=== PATIENT | female | born 1975 | race Caucasian/White ===

== ENCOUNTER 2016-07-27 11:16 | Emergency (ER) | payer SELFPAY ==
[~2016-07-27] VITALS: Ht 162.6 cm; Wt 56.5 kg
[~2016-07-27 11:16] MED LIST: ADDE5TAB PO; BACT800T5 PO
[2016-07-27 11:17] VITALS: BP 167/98; PULSE 97; RESP 17; TEMP 98.2; O2SAT 98
[2016-07-27] MEDS ORDERED: BUPR4MIS SL (11:32)
--- NOTE | 2016-07-27 11:38 | PD ---
HPI Chief Complaint: Psychiatric Symptoms Time Seen by Provider: 11:38 Travel History International Travel<30 days: No Contact w/Intl Traveler<30days: No Traveled to known affect area: No History of Present Illness HPI 50-year-old female who is a polysubstance abuser came in because she is having anxiety and body aches. I asked her about detox since the triage note says detox and she said she was not sure why they put detox. She does have these symptoms for past 2 months. She did IV drug abuse prior to coming into the emergency room this morning. She was falling asleep as I was talking to her but then woke up and answered questions appropriately. She was scratching her face constantly while she was talking to me. Vital signs are within normal limits. I asked her if she spoke with her primary care about her symptoms since that been going on for 2 months and she said that she did and he gave her prescription for Cymbalta. She has not filled this prescriptions yet. PFSH Past Medical History Narrative Medical List of her past medical, social, surgical and family history is reviewed from the nursing note. Hx Anticoagulant Therapy: No Anxiety: Yes Depression: Yes Cardiovascular Problems: No Chemotherapy: No Cerebrovascular Accident: No Diabetes: No Diminished Hearing: No Reproductive: Yes (ENDOMETRIOSIS) Respiratory: No Immunizations Current: No Tetanus Vaccination: > 5 Years Influenza Vaccination: No ?: Not LMP: 07/27/16 : 3 Para: 0 Miscarriage: 1 : 3 Past Surgical History Surgical History: No Previous Surgery Hysterectomy: No Social History Alcohol Use: Yes (PT STATES OCCASIONALLY) Tobacco Use: Yes (1/2 PPD) Substance Use: Yes (DILAUDID/METH IVDA) Allergies-Medications (Allergen,Severity, Reaction): Coded Allergies: *MDRO Multi-Drug Resistant Organism (Verified Adverse Reaction, Unknown, ) ESBL+E.Coli (urine)-11/14/15 Comments List of her allergies reviewed from the nursing note. Reported Meds & Prescriptions Reported Meds & Active Scripts Active Reported Suboxone Sublingual Film (Buprenorphine-Naloxone Sublingual Film) 4-1 Mg Film 1 Film SL Unique ID number required: Narrative Medication List of her home medications reviewed from the nursing note. Review of Systems Except as stated in HPI: all other systems reviewed are Neg Physical Exam Narrative GENERAL: Drowsy, answering questions appropriately, no obvious distress SKIN: Warm and dry. HEAD: Atraumatic. Normocephalic. EYES: Pupils equal and round. No scleral icterus. No injection or drainage. ENT: No nasal bleeding or discharge. Mucous membranes pink and moist. NECK: Trachea midline. No JVD. CARDIOVASCULAR: Regular rate and rhythm. No murmur appreciated. RESPIRATORY: No accessory muscle use. Clear to auscultation. Breath sounds equal bilaterally. GASTROINTESTINAL: Abdomen soft, non-tender, nondistended. Hepatic and splenic margins not palpable. MUSCULOSKELETAL: No obvious deformities. No clubbing. No cyanosis. No edema. NEUROLOGICAL: Drowsy but wakes up upon calling her name and answers questions appropriately. No obvious cranial nerve deficits. Motor grossly within normal limits. Normal speech. PSYCHIATRIC: Appropriate mood and affect; insight and judgment normal. Data Data Last Documented VS Vital Signs Date Time Temp Pulse Resp B/P Pulse Ox O2 Delivery O2 Flow Rate FiO2 07/27/16 11:17 98.2 97 17 167/98 98 MDM Medical Decision Making Medical Screen Exam Complete: Yes Emergency Medical Condition: Yes Medical Record Reviewed: Yes Differential Diagnosis Polysubstance abuse, substance abuse related anxiety Narrative Course 12:07 PM I recommended the patient to fill the prescription for Cymbalta and start taking it like her primary care prescribed if it does not seem to contain her symptoms then she needs to go back to her primary care and discuss it with him. I will discharge her at this point. Procedures EKG Prior to Arrival: No Diagnosis Primary Impression: Substance abuse Additional Impression: Anxiety Referrals: Primary Care Physician Additional Instructions: Please take the medication that was prescribed to you by your primary care. If symptoms are not getting better after taking it for a few days then please follow-up with your primary care. Med/Other Pt SpecificInfo: No Change to Meds Disposition: 01 DISCHARGE HOME Condition: Stable Leticia Cook MD Jul 27, 2016 11:38
== END 2016-07-27 12:25 | disposition home or self-care (01) ==
LOC: NEPA 11:16
DX: F19.10 Other psychoactive substance abuse, uncomplicated (principal); F41.9 Anxiety disorder, unspecified; F17.200 Nicotine dependence, unspecified, uncomplicated; Z86.59 Personal history of other mental and behavioral disorders; Z87.42 Personal history of other diseases of the female genital tract
CPT/HCPCS: 99283

== ENCOUNTER 2016-10-11 00:08 | Inpatient (IN) | payer OTHER ==
[~2016-10-11] VITALS: Ht 162.6 cm; Wt 51.0 kg
[2016-10-11] VITALS (16 sets, daily range): BP systolic 89–141; BP diastolic 52–82; PULSE 67–98; RESP 12–20; TEMP 96.7–97.7; O2SAT 97–100
[~2016-10-11 00:08] MED LIST changes: -ADDE5TAB PO; -BACT800T5 PO; +BUPR4MIS SL
[2016-10-11] MEDS ORDERED: NALOXONE HCL 0.4 MG/ML AMP IV PUSH ONE (00:30)
--- NOTE | 2016-10-11 01:11 | PD ---
HPI Chief Complaint: OD/ Ingestion Time Seen by Provider: 00:22 Travel History International Travel<30 days: No Contact w/Intl Traveler<30days: No Traveled to known affect area: No History of Present Illness HPI 40-year-old female came to the emergency room brought by EMS after being found unresponsive, not breathing by a naval police coxswain in her car. She was suspected heroin overdose and Narcan was given which reversed his condition. She admits to IV abusing heroin which was her boyfriend she said. So by the nurse that her was positive. Patient is still having some slurred speech. She says she is on Suboxone. PFSH Past Medical History Narrative Medical List of her past medical, surgical, social and family history reviewed from the nursing note. Hx Anticoagulant Therapy: No Anxiety: Yes Depression: Yes Cardiovascular Problems: No Chemotherapy: No Cerebrovascular Accident: No Diabetes: No Diminished Hearing: No Reproductive: Yes (ENDOMETRIOSIS) Respiratory: No Immunizations Current: No ?: Unknown : 3 Para: 0 Miscarriage: 1 : 3 Past Surgical History Hysterectomy: No Social History Alcohol Use: Yes (PT STATES OCCASIONALLY) Tobacco Use: Yes (1/2 PPD) Substance Use: Yes (DILAUDID/METH IVDA) Allergies-Medications (Allergen,Severity, Reaction): Coded Allergies: *MDRO Multi-Drug Resistant Organism (Verified Adverse Reaction, Unknown, ) ESBL+E.Coli (urine)-11/14/15 Comments List of her allergies reviewed from the nursing note. Reported Meds & Prescriptions Reported Meds & Active Scripts Active Reported Suboxone Sublingual Film (Buprenorphine-Naloxone Sublingual Film) 4-1 Mg Film 1 Film SL Unique ID number required: Narrative Medication List of her home medications reviewed from the nursing note. Review of Systems Except as stated in HPI: all other systems reviewed are Neg Physical Exam Narrative GENERAL: Lethargic, slurred speech, intoxicated, tearful SKIN: Focused skin assessment warm/dry. HEAD: Atraumatic. Normocephalic. EYES: Pupils equal and round. No scleral icterus. No injection or drainage. ENT: No nasal bleeding or discharge. Mucous membranes pink and moist. NECK: Trachea midline. No JVD. CARDIOVASCULAR: Regular rate and rhythm. No murmur appreciated. RESPIRATORY: No accessory muscle use. Clear to auscultation. Breath sounds equal bilaterally. GASTROINTESTINAL: Abdomen soft, non-tender, nondistended. Hepatic and splenic margins not palpable. MUSCULOSKELETAL: No obvious deformities. No clubbing. No cyanosis. No edema. NEUROLOGICAL: Lethargic. No obvious cranial nerve deficits. Motor grossly within normal limits. Slurred speech. PSYCHIATRIC: Appropriate mood and affect; insight and judgment normal. Data Data Last Documented VS Orders Naloxone Inj (Narcan Inj) (10/11/16 00:30) Drug Screen, Random Urine (10/11/16 00:23) Alcohol (Ethanol) (10/11/16 00:23) ^ Straight Catheter (10/11/16 01:11) Naloxone Inj (Narcan Inj) (10/11/16 02:30) Sodium Chlor 0.9% 1000 Ml Inj (Ns 1000 M (10/11/16 02:30) Naloxone Inj (Narcan Inj) (10/11/16 02:30) Admit Order (Ed Use Only) (10/11/16 02:46) Labs Laboratory Tests Test 10/11/16 10/11/16 00:27 02:00 Sodium Level 140 MEQ/L Potassium Level 3.1 MEQ/L Chloride Level 108 MEQ/L Carbon Dioxide Level 23.5 MEQ/L Anion Gap 9 MEQ/L Blood Urea Nitrogen 13 MG/DL Creatinine 0.98 MG/DL Estimat Glomerular Filtration 63 ML/MIN Rate Random Glucose 204 MG/DL Calcium Level 7.8 MG/DL Acetaminophen Level LESS THAN 2.0 MCG/ML Ethyl Alcohol Level LESS THAN 3 MG/DL Urine Opiates Screen POS Urine Barbiturates Screen NEG Urine Amphetamines Screen POS Urine Benzodiazepines Screen POS Urine Cocaine Screen POS Urine Cannabinoids Screen NEG MDM Medical Decision Making Medical Screen Exam Complete: Yes Emergency Medical Condition: Yes Medical Record Reviewed: Yes Differential Diagnosis Heroin overdose Narrative Course 1:10 AM patient was given another 0.4 mg of Narcan. Awaiting for urine tox screen and alcohol level. She will be observed for 4 hours after being brought in. 2:55 AM urine drug screen is significantly positive for majority of substance. Patient continues to going to significant altered mental status. I have ordered another 2 mg of IV Narcan and ordered a Narcan drip. She needs to be admitted to the ICU. I spoke with the handle bar assembler was accepted the patient. Critical Care Narrative Aggregate critical care time was 45 minutes. Time to perform other separately billable procedures was not included in the critical care time. My time did not include minutes spent treating any other patients simultaneously or on activities that did not directly contribute to the patient's treatment. The services I provided to this patient were to treat and/or prevent clinically significant deterioration that could result in: Appropriate overdose, altered mental status, poorly arousable, aspiration risk, Narcan drip I provided critical care services requiring my management, as noted below: Chart data review, documentation time, medication orders and management, vital sign assessments/reviewing monitor data, ordering and reviewing lab tests, ordering and interpreting/reviewing x-rays and diagnostic studies, care of the patient and discussion of the patient with the admitting physicians. Procedures EKG Prior to Arrival: No Diagnosis Primary Impression: Opiate overdose Qualified Code: T40.604A - Opiate overdose, undetermined intent, initial encounter Additional Impressions: Polysubstance abuse Altered mental status Qualified Code: R40.1 - Leticia Ortez MD October 11, 2016 01:11
[2016-10-11 02:28] LABS: AMPHETAMINE, URINE POS (NEG); BARBITURATES, URINE NEG (NEG); COCAINE, URINE POS (NEG)
[2016-10-11] MEDS ORDERED: SODIUM CHLOR 0.9% 1000 ML INJ 1,000 ML IV ONE (02:30)
[2016-10-11] MEDS ORDERED: NALOXONE HCL 2 MG/2 ML VIAL IV PUSH ONE (02:30)
[2016-10-11] MEDS: NALOXONE INJ 4 MG in DEXTROSE 5% IN WATER INJ 246 ML IV SCH ×8 (03:24→08:45)
--- NOTE | 2016-10-11 07:56 | HHI.HP ---
[facility] Service Critical Care Medicine Primary Care Physician Darius Garcia, DO Admission Diagnosis opiate overdose, altered mental status Diagnosis: Travel History International Travel<30 Days: No Contact w/Intl Traveler <30 Da: No Traveled to Known Affected Are: No History of Present Illness 40 yo WF with PMH of polysubstance abuse who presents to [facility] emergency department after she was found by law enforcement unresponsive near a car. She was given Narcan by EVAC and woke up. Patient states that she takes suboxone and in addition took her boyfriend's heroin tonight. She required Narcan 0.4 mg IV, Narcan 2 mg IV and then Narcan drip was started in ED. UDS patient's point of care test is positive. Urine drug screen positive for opiates, amphetamines, benzos, cocaine. She states she was not aware that she was and states that her last menstrual period was 3 weeks ago. She denies vaginal bleeding or abdominal cramping. Denies headache. Past Family Social History Allergies: Coded Allergies: *MDRO Multi-Drug Resistant Organism (Verified Adverse Reaction, Unknown, ) ESBL+E.Coli (urine)-11/14/15 Past Medical History Polysubstance abuse including IV drug use of Dilaudid and methamphetamines. Endometriosis Tobacco abuse Past Surgical History None Reported Medications Suboxone 4/1 mg sublingual Family History Patient denies significant family medical history. Social History Smokes a half pack of cigarettes per day. Polysubstance abuse including urine drug screen positive for cocaine, amphetamines, benzos, opiates. She admits to using IV Dilaudid, heroin, methamphetamines Drink alcohol occasionally Physical Exam Vital Signs Vital Signs Date Time Temp Pulse Resp B/P Pulse Ox O2 Delivery O2 Flow Rate FiO2 10/11/16 06:32 85 15 102/61 100 Room Air 10/11/16 06:09 79 16 118/66 97 Room Air 10/11/16 05:30 80 15 98/77 99 Room Air 10/11/16 04:09 79 15 105/55 100 Room Air 10/11/16 03:30 78 14 92/52 99 Room Air 10/11/16 03:17 78 15 120/82 100 Room Air 10/11/16 02:30 98 20 139/76 98 Room Air 10/11/16 02:22 67 12 89/53 100 Room Air 10/11/16 01:32 72 13 99/55 99 Room Air 10/11/16 00:31 89 13 113/71 100 Room Air 10/11/16 00:13 97.7 95 14 102/60 100 Physical Exam Drips Narcan 0.6 mg per hour GENERAL: Thin, well-developed patient who is laying in the ED gurney, arouses to voice. SKIN: Warm and dry. HEAD: Atraumatic. Normocephalic. EYES: Pupils pinpoint and reactive bilaterally. No scleral icterus. No injection or drainage. ENT: No nasal bleeding or discharge. Mucous membranes pink and moist. NECK: Trachea midline. No JVD. CARDIOVASCULAR: Regular rate and rhythm. No murmurs rubs or gallops. RESPIRATORY: Breathing comfortably. No accessory muscle use. Clear to auscultation. Breath sounds equal bilaterally. On room air GASTROINTESTINAL: Abdomen soft, non-tender, nondistended. Bowel sounds present. MUSCULOSKELETAL: Extremities without clubbing, cyanosis, or edema. No obvious deformities. NEUROLOGICAL: Eyes closed when I approach the room but opens eyes and responds readily to voice. Oriented to self, hospital, year. Strength 5 out of 5 in all extremities. Sensation intact Laboratory Laboratory Tests Test 10/11/16 10/11/16 00:27 02:00 Ethyl Alcohol Level LESS THAN 3 Urine Opiates Screen POS Urine Barbiturates Screen NEG Urine Amphetamines Screen POS Urine Benzodiazepines Screen POS Urine Cocaine Screen POS Urine Cannabinoids Screen NEG Assessment and Plan Assessment and Plan NEURO: Polysubstance abuse (cocaine, methamphetamines, heroin, benzos) Wean off Narcan drip. Obtain tylenol level. RESP: On room air. Patient is currently protecting airway. CV: Monitor hemodynamics GI: Regular diet when off narcan drip. CARBONATION TESTER: Patient has been informed that she is . Recommended take vitamin. Recommended discontinue smoking and polysubstance abuse and seek follow-up care. FEN/RENAL: Voiding. Obtain BMP. ID: Monitor for signs and symptoms of infection ENDO: No known endocrine issues PROPH: SCDs. Early ambulation and plan to discharge later today when off Narcan drip. Stress ulcer prophylaxis not indicated. ACCESS: Peripheral IV providing adequate access at this time. Discussed with Dr. Joey RINALDI Level III H&P Edita Jaime MD October 11, 2016 07:56
[2016-10-11] MEDS ORDERED: SODIUM CHLOR 0.9% 1000 ML INJ 1,000 ML IV SCH (08:00)
[2016-10-11] MEDS ORDERED: MISCELLANEOUS NURSING INFORMATION XX SCH (08:15)
[2016-10-11] MEDS ORDERED: ONDANSETRON HCL 4 MG/2 ML VIAL IV PRN (08:15)
[2016-10-11] MEDS ORDERED: BISACODYL 10 MG SUPP RECTAL PRN (08:15)
[2016-10-11] MEDS ORDERED: CHLORHEXIDINE GLUCONATE 2 % 1 PACK (2 CLOTHS) TOP PRN (08:15)
[2016-10-11] MEDS ORDERED: SODIUM CHLORIDE 0.9% FLUSH 10 ML FLUSH PRN (08:15)
[2016-10-11] MEDS ORDERED: MAGNESIUM HYDROXIDE SUSP 30 ML CUP PO PRN (08:15)
[2016-10-11] MEDS ORDERED: SENNOSIDES 8.6 MG TAB PO PRN (08:15)
[2016-10-11] MEDS ORDERED: LACTULOSE SYRUP 20 GM/30 ML CUP PO PRN (08:15)
[2016-10-11] MEDS ORDERED: PRENATAL VITAMIN CHEWABLE TAB CHEW SCH (09:00)
[2016-10-11] MEDS ORDERED: SODIUM CHLORIDE 0.9% FLUSH 10 ML FLUSH SCH (09:00)
[2016-10-11] MEDS ORDERED: DOCUSATE SODIUM 50 MG/SENNA 8.6 MG TAB PO SCH (09:00)
[2016-10-11] MEDS ORDERED: RESP: ALBUTEROL 2.5 MG/3 ML NEB (SCH) INH (10:00)
--- NOTE | 2016-10-11 10:41 | HHI.DS ---
Discharge Summary Admission Date October 11, 2016 at 02:48 Admitting Diagnosis opiate overdose, altered mental status Brief History 40 yo WF with PMH of polysubstance abuse who presents to [facility] emergency department after she was found by law enforcement unresponsive near a car. She was given Narcan by EVAC and woke up. Patient states that she takes suboxone and in addition took her boyfriend's heroin tonight. She required Narcan 0.4 mg IV, Narcan 2 mg IV and then Narcan drip was started in ED. UDS patient's point of care test is positive. Urine drug screen positive for opiates, amphetamines, benzos, cocaine. She states she was not aware that she was and states that her last menstrual period was 3 weeks ago. She denies vaginal bleeding or abdominal cramping. Denies headache. Significant Findings Laboratory Tests Test 10/11/16 02:00 Urine Opiates Screen POS (NEG) Urine Amphetamines Screen POS (NEG) Urine Benzodiazepines Screen POS (NEG) Urine Cocaine Screen POS (NEG) PE at Discharge Awake, alert, breathing comfortably. Neuro intact. Pt Condition on Discharge: Good Discharge Instructions Additional Information Required narcan gtt, now off for > 3 hours. Alert, awake, O X 3. Ayad Urena MD October 11, 2016 10:41
[2016-10-11 13:09] LABS: ANION GAP 9 MEQ/L (5-15); BICARBONATE 23.5 MEQ/L (21.0-32.0); BLOOD UREA NITROGEN 13 MG/DL (7-18); CHLORIDE 108 MEQ/L (98-107); GLOMERULAR FILTRATION RATE 63 ML/MIN (>89); POTASSIUM 3.1 MEQ/L (3.5-5.1); SODIUM (NA) 140 MEQ/L (136-145)
[2016-10-11 13:10] LABS: ACETAMINOPHEN LESS THAN 2.0 MCG/ML (10.0-30.0)
[2016-10-12] MEDS ORDERED: CHLORHEXIDINE GLUCONATE 2 % 1 PACK (2 CLOTHS) TOP SCH (04:00)
== END 2016-10-11 12:33 | disposition home or self-care (01) | DRG 781 ==
LOC: NEPE 00:08 → NEDA 02:48 → NEDH 06:47 → N06A 10:12
PROVIDERS: ADMIT Emergency Medicine; ATTEND Emergency Medicine
DX: O99.321 Drug use complicating pregnancy, first trimester (principal); F11.10 Opioid abuse, uncomplicated; Z3A.00 Weeks of gestation of pregnancy not specified; F14.10 Cocaine abuse, uncomplicated; O99.331 Smoking (tobacco) complicating pregnancy, first trimester; F17.210 Nicotine dependence, cigarettes, uncomplicated
CPT/HCPCS: 80048; 80307; 94664; 96374; 96375; J2310; J7030; J7060; J7613

== ENCOUNTER 2016-12-13 15:21 | Emergency (ER) | payer MEDICAID, OTHER ==
[~2016-12-13] VITALS: Ht 162.6 cm; Wt 54.0 kg
[2016-12-13 15:24] VITALS: BP 96/65; PULSE 97; RESP 20; TEMP 98.1; O2SAT 99
[2016-12-13 16:05] VITALS: BP 108/62; PULSE 90; RESP 18; O2SAT 99
[2016-12-13 16:15] LABS: BACTERIA, URINE MANY /hpf; BLOOD, URINE SMALL (NEG); COMMENT (UR) CULTURE INDICATED; CULTURE IF INDICATED CULTURE INDICATED; GLUCOSE,URINE NEG (NEG); HYALINE CAST, URINE 9 /lpf (RARE); KETONE, URINE NEG (NEG); MUCUS URINE MANY /lpf (OCC); PH, URINE 7.5 (5.0-8.5); SQUAMOUS EPITHELIAL CELL URINE 12 /hpf (0-5); URINE COLOR YELLOW (YELLW/STRAW)
[2016-12-13 16:17] LABS: NITRITE,URINE POS (NEG)
[2016-12-13] MEDS ORDERED: SODIUM CHLOR 0.9% 1000 ML INJ 1,000 ML IV SCH (16:39)
[2016-12-13] MEDS ORDERED: cefTRIAXone INJ 1,000 MG in SODIUM CHLORIDE 0.9% INJ 100 ML IV ONE (16:45)
[2016-12-13 17:26] LABS: MEAN CELL VOLUME 92.8 FL (80.0-100.0); MEAN CORPUSCULAR HEMOGLOBIN 32.1 PG (27.0-34.0); MEAN CORPUSCULAR HGB CONC 34.6 % (32.0-36.0); PLATELET COUNT 135 TH/MM3 (150-450); RED BLOOD COUNT 3.56 MIL/MM3 (4.00-5.30); RED CELL DISTRIBUTION WIDTH 13.7 % (11.6-17.2); WHITE BLOOD COUNT 4.5 TH/MM3 (4.0-11.0)
[2016-12-13 17:27] LABS: HEMO FLAGS AUTO DIFF
[2016-12-13 17:41] LABS: POTASSIUM 3.5 MEQ/L (3.5-5.1)
[2016-12-13 18:05] LABS: BANDS 7 % (0-6); NEUTROPHIL # MANUAL DIFF 2.3 TH/MM3 (1.8-7.7); PLATELET ESTIMATE SMEAR LOW (NORMAL); PLATELET MORPHOLOGY NORMAL (NORMAL); POLYS (SEG NEUTROPHILS) 44 % (16-70); SCAN/DIFF FINAL DIFF MANUAL; WBC DIFF SAMPLE 100
[2016-12-13 18:18] VITALS: BP 99/61; PULSE 87; RESP 17; O2SAT 98
--- NOTE | 2016-12-13 18:39 | PD ---
HPI Chief Complaint: Complaint Time Seen by Provider: 17:00 Travel History International Travel<30 days: No Contact w/Intl Traveler<30days: No Traveled to known affect area: No History of Present Illness HPI 41-year-old female with chief complaint of right flank pain and dysuria 2 days. Patient reports similar symptoms in the past with previous kidney infections. She reports subjective fever earlier today. She denies nausea, vomiting, abdominal pain. She reports the flank pain is constant, nonradiating , severity 4 out of 10. No alleviating factors. PFSH Past Medical History Hx Anticoagulant Therapy: No Anxiety: Yes Depression: Yes Cardiovascular Problems: No Chemotherapy: No Cerebrovascular Accident: No Diabetes: No Diminished Hearing: No Endocrine: No Genitourinary: No Immune Disorder: No Musculoskeletal: No Neurologic: No Reproductive: Yes (ENDOMETRIOSIS) Respiratory: No Immunizations Current: No ?: Not LMP: 10/2016 Menopausal: No : 4 Para: 0 Miscarriage: 2 : 2 Past Surgical History Gynecologic Surgery: Yes (ABORTIONS) Hysterectomy: No Social History Alcohol Use: Yes (PT STATES OCCASIONALLY) Tobacco Use: Yes (1/2 PPD) Substance Use: Yes (hx) Allergies-Medications (Allergen,Severity, Reaction): Coded Allergies: *MDRO Multi-Drug Resistant Organism (Verified Adverse Reaction, Unknown, ) ESBL+E.Coli (urine)-11/14/15 Reported Meds & Prescriptions Reported Meds & Active Scripts Active Reported Suboxone Sublingual Film (Buprenorphine-Naloxone Sublingual Film) 4-1 Mg Film 1 Film SL Unique ID number required: Review of Systems Except as stated in HPI: all other systems reviewed are Neg Physical Exam Narrative GENERAL: [-] SKIN: Focused skin assessment warm/dry. HEAD: Atraumatic. Normocephalic. EYES: Pupils equal and round. No scleral icterus. No injection or drainage. ENT: No nasal bleeding or discharge. Mucous membranes pink and moist. NECK: Trachea midline. No JVD. CARDIOVASCULAR: Regular rate and rhythm. No murmur appreciated. RESPIRATORY: No accessory muscle use. Clear to auscultation. Breath sounds equal bilaterally. GASTROINTESTINAL: Abdomen soft, mild ttp suprapubic region, nondistended. Hepatic and splenic margins not palpable. Right CVA tenderness. MUSCULOSKELETAL: No obvious deformities. No clubbing. No cyanosis. No edema. NEUROLOGICAL: Awake and alert. No obvious cranial nerve deficits. Motor grossly within normal limits. Normal speech. PSYCHIATRIC: Appropriate mood and affect; insight and judgment normal. Data Data Last Documented VS Vital Signs Date Time Temp Pulse Resp B/P Pulse Ox O2 Delivery O2 Flow Rate FiO2 12/13/16 18:18 87 17 99/61 98 Room Air 12/13/16 15:24 98.1 Orders Urinalysis - C+S If Indicated (12/13/16 15:37) Ed Urine Pregnancytest Poc (12/13/16 15:37) Urinalysis - C+S If Indicated (12/13/16 15:40) Ed Urine Pregnancytest Poc (12/13/16 15:57) Urine Culture (12/13/16 15:42) Basic Metabolic Panel (Bmp) (12/13/16 16:39) Complete Blood Count With Diff (12/13/16 16:39) Lactic Acid (12/13/16 16:39) Iv Access Insert/Monitor (12/13/16 16:39) Sodium Chlor 0.9% 1000 Ml Inj (Ns 1000 M (12/13/16 16:39) Ceftriaxone Inj (Rocephin Inj) (12/13/16 16:45) Labs Laboratory Tests Test 12/13/16 12/13/16 15:42 16:55 Urine Color YELLOW Urine Turbidity HAZY Urine pH 7.5 Urine Specific [place] 1.028 Urine Protein 30 mg/dL Urine Glucose (UA) NEG mg/dL Urine Ketones NEG mg/dL Urine Occult Blood SMALL Urine Nitrite POS Urine Bilirubin NEG Urine Urobilinogen 2.0 MG/DL Urine Leukocyte Esterase SMALL Urine RBC 55 /hpf Urine WBC 19 /hpf Urine Squamous Epithelial 12 /hpf Cells Urine Amorphous Sediment RARE Urine Bacteria MANY /hpf Urine Hyaline Casts 9 /lpf Urine Mucus MANY /lpf Microscopic Urinalysis Comment CULTURE INDICATED White Blood Count 4.5 TH/MM3 Red Blood Count 3.56 MIL/MM3 Hemoglobin 11.4 GM/DL Hematocrit 33.0 % Mean Corpuscular Volume 92.8 FL Mean Corpuscular Hemoglobin 32.1 PG Mean Corpuscular Hemoglobin 34.6 % Concent Red Cell Distribution Width 13.7 % Platelet Count 135 TH/MM3 Mean Platelet Volume 7.9 FL Neutrophils (%) (Auto) % Lymphocytes (%) (Auto) % Monocytes (%) (Auto) % Eosinophils (%) (Auto) % Basophils (%) (Auto) % Neutrophils # (Auto) TH/MM3 Lymphocytes # (Auto) TH/MM3 Monocytes # (Auto) TH/MM3 Eosinophils # (Auto) TH/MM3 Basophils # (Auto) TH/MM3 CBC Comment AUTO DIFF Differential Total Cells 100 Counted Neutrophils % (Manual) 44 % Band Neutrophils % 7 % Lymphocytes % 37 % Monocytes % 12 % Neutrophils # (Manual) 2.3 TH/MM3 Differential Comment FINAL DIFF MANUAL Platelet Estimate LOW Platelet Morphology Comment NORMAL Sodium Level 138 MEQ/L Potassium Level 3.5 MEQ/L Chloride Level 105 MEQ/L Carbon Dioxide Level 28.0 MEQ/L Anion Gap 5 MEQ/L Blood Urea Nitrogen 15 MG/DL Creatinine 0.66 MG/DL Estimat Glomerular Filtration 99 ML/MIN Rate Random Glucose 88 MG/DL Lactic Acid Level 1.2 mmol/L Calcium Level 8.2 MG/DL [facility] Medical Decision Making Medical Screen Exam Complete: Yes Emergency Medical Condition: Yes Differential Diagnosis UTI, pallor nephritis, nephrolithiasis. Narrative Course 41-year-old female with chief complaint of right flank pain and dysuria 2 days. Patient reports similar symptoms with pyelonephritis in the past. She denies ever being hospitalized for such infection. She reports subjective fever. Patient is well-appearing. Her initial blood pressure in triage was noted to be slightly low but when rechecked was in the 108/68. She is afebrile. Heart rate 79. She does have right-sided CVA tenderness. Urine negative CBC is unremarkable BMP unremarkable Lactic acid 1.2 UA: Positive for infection IV access established labs ordered and reviewed, 1 g IV Rocephin and 1 L of normal saline administered. Patient will be discharged home on Cipro for 7 days. She agrees to follow up with primary care physician. Return precautions discussed. Patient verbalizes understanding and agrees to plan. Diagnosis Primary Impression: Pyelonephritis Referrals: [facility] Additional Instructions: Take antibiotics as prescribed. Stay well hydrated by drinking plenty of fluids. Follow-up with her primary care doctor. Return to the emergency department if he developed new or worsening symptoms. Scripts Ciprofloxacin (Cipro)500 Mg Oan751 Mg PO BID #14 TAB Ref 0 Prov:Stephenie Foster 12/13/16 Disposition: 01 DISCHARGE HOME Condition: Stable Stephenie Foster Dec 13, 2016 18:39
[2016-12-13] MEDS ORDERED: CIPR-9 PO (18:40)
== END 2016-12-13 18:57 | disposition home or self-care (01) ==
LOC: NEPD 15:21
DX: N12 Tubulo-interstitial nephritis, not specified as acute or chronic (principal); B96.20 Unspecified Escherichia coli [E. coli] as the cause of diseases classified elsewhere; F17.200 Nicotine dependence, unspecified, uncomplicated
CPT/HCPCS: 80048; 81001; 83605; 84703; 85007; 85027; 87077; 87086; 87186; 96365; 99284; J0696; J7030

== ENCOUNTER 2016-12-20 19:08 | Emergency (ER) | payer MEDICAID ==
[~2016-12-20] VITALS: Ht 162.6 cm; Wt 54.0 kg
[~2016-12-20 19:08] MED LIST changes: +CIPR-9 PO
[2016-12-20 19:10] VITALS: BP 136/91; PULSE 104; RESP 16; TEMP 97.4; O2SAT 99
[2016-12-20] MEDS ORDERED: BACT800T5 PO (19:29)
[2016-12-20] MEDS ORDERED: SULFAMETHOXAZOLE-TRIMETHOPRIM DS 800-160 MG TAB PO ONE (19:30)
--- NOTE | 2016-12-20 19:32 | PD ---
HPI Chief Complaint: Abnormal Results Time Seen by Provider: 19:20 Travel History International Travel<30 days: No Contact w/Intl Traveler<30days: No Traveled to known affect area: No History of Present Illness HPI This Is a 41-year-old female who presents for follow-up on urine culture results. This patient was seen here on December 13 for evaluation of dysuria and right flank pain. She was found to have a urinary tract infection and she was given an IV dose of Rocephin at that time and discharged with ciprofloxacin. Today she received a voice mail from the ED charge nurse in regards to the urine culture results having returned. She did not quite understand the voice mail and so she came here for follow-up on it. The patient's urine culture grew out Escherichia coli resistant to ciprofloxacin. The patient does report that her right flank discomfort has resolved. Her dysuria has resolved. She denies abdominal pain, nausea or vomiting or fevers. She has no other complaints. PFSH Past Medical History Hx Anticoagulant Therapy: No Anxiety: Yes Depression: Yes Cardiovascular Problems: No Chemotherapy: No Cerebrovascular Accident: No Diabetes: No Diminished Hearing: No Endocrine: No Genitourinary: No Immune Disorder: No Musculoskeletal: No Neurologic: No Reproductive: Yes (ENDOMETRIOSIS) Respiratory: No Immunizations Current: No Menopausal: No : 4 Para: 0 Miscarriage: 2 : 2 Past Surgical History Gynecologic Surgery: Yes (ABORTIONS) Hysterectomy: No Social History Alcohol Use: Yes (PT STATES OCCASIONALLY) Tobacco Use: Yes (1/2 PPD) Substance Use: Yes (hx) Allergies-Medications (Allergen,Severity, Reaction): Coded Allergies: *MDRO Multi-Drug Resistant Organism (Verified Adverse Reaction, Unknown, ) ESBL+E.Coli (urine)-11/14/15 Reported Meds & Prescriptions Reported Meds & Active Scripts Active Cipro (Ciprofloxacin HCl) 500 Mg Tab 500 Mg PO BID Reported Suboxone Sublingual Film (Buprenorphine-Naloxone Sublingual Film) 4-1 Mg Film 1 Film SL Unique ID number required: Review of Systems Except as stated in HPI: all other systems reviewed are Neg Physical Exam Narrative GENERAL: Well-developed well-nourished female in no acute distress SKIN: Warm and dry. HEAD: Atraumatic. Normocephalic. EYES: Pupils equal and round. No scleral icterus. No injection or drainage. ENT: No nasal bleeding or discharge. Mucous membranes pink and moist. NECK: Trachea midline. No JVD. CARDIOVASCULAR: Regular rate and rhythm. No murmur appreciated. RESPIRATORY: No accessory muscle use. Clear to auscultation. Breath sounds equal bilaterally. GASTROINTESTINAL: Abdomen soft, non-tender, nondistended. Hepatic and splenic margins not palpable. MUSCULOSKELETAL: No obvious deformities. No edema. No CVA tenderness. NEUROLOGICAL: Awake and alert. No obvious cranial nerve deficits. Motor grossly within normal limits. Normal speech. PSYCHIATRIC: Appropriate mood and affect; insight and judgment normal. Data Data Last Documented VS Vital Signs Date Time Temp Pulse Resp B/P Pulse Ox O2 Delivery O2 Flow Rate FiO2 12/20/16 19:10 97.4 104 16 136/91 99 Room Air Orders Sulfamet-Trimeth Ds 800-160 Mg (Bactrim (12/20/16 19:30) MDM Medical Decision Making Medical Screen Exam Complete: Yes Emergency Medical Condition: Yes Medical Record Reviewed: Yes Differential Diagnosis Cipro resistant UTI versus pyelonephritis versus medication change Narrative Course The patient's UTI culture results, which have grown out Escherichia coli, are susceptible to Bactrim and so the patient will be started on Bactrim. She is stable for discharge. Diagnosis Primary Impression: Urinary tract infection Qualified Code: N39.0 - Urinary tract infection with hematuria, site unspecified Additional Instructions: Quit taking the ciprofloxacin. Begin taking the Bactrim. Stay well hydrated and well-nourished. Return for any emergent medical conditions. Med/Other Pt SpecificInfo: Prescription(s) given Scripts Sulfamethoxazole-Trimethoprim (Bactrim DS)800-160 Mg Tab1 Tab PO BID #14 TAB Ref 0 Prov:Suzanne Kowalski MD 12/20/16 Disposition: DISCHARGE HOME Condition: Stable Alo Gaytan Dec 20, 2016 19:32
== END 2016-12-20 19:55 | disposition home or self-care (01) ==
LOC: NEPD 19:08
DX: N39.0 Urinary tract infection, site not specified (principal); F17.210 Nicotine dependence, cigarettes, uncomplicated
CPT/HCPCS: 99283

== ENCOUNTER 2017-02-21 20:31 | Emergency (ER) | payer MEDICAID ==
[~2017-02-21] VITALS: Ht 162.6 cm; Wt 60.0 kg
[~2017-02-21 20:31] MED LIST changes: +BACT800T5 PO; -BUPR4MIS SL
[2017-02-21 21:55] VITALS: BP 117/78; PULSE 99; RESP 18; TEMP 98.1; O2SAT 98
[2017-02-21] MEDS ORDERED: CLINDAMYCIN 150 MG CAP PO ONE (22:15)
[2017-02-21 22:20] VITALS: BP 127/74; PULSE 68; RESP 18; O2SAT 100
[2017-02-21] MEDS ORDERED: LEXA10TA PO (22:20)
[2017-02-21] MEDS ORDERED: CLIN1CAP5 PO (22:20)
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
== END 2017-02-21 22:49 | disposition home or self-care (01) ==
LOC: NEPD 20:31
DX: S01.552A Open bite of oral cavity, initial encounter (principal); X58.XXXA Exposure to other specified factors, initial encounter
CPT/HCPCS: 99283

== ENCOUNTER 2017-03-23 19:52 | Emergency (ER) | payer MEDICAID ==
[~2017-03-23] VITALS: Ht 162.6 cm; Wt 60.0 kg
[~2017-03-23 19:52] MED LIST changes: -BACT800T5 PO; -CIPR-9 PO; +LEXA10TA PO
[2017-03-23 20:08] VITALS: BP 142/89; PULSE 89; RESP 18; TEMP 98.8; O2SAT 100
== END 2017-03-23 20:33 | disposition left against medical advice (07) ==
LOC: NEPD 19:52
DX: Z53.21 Procedure and treatment not carried out due to patient leaving prior to being seen by health care provider (principal)

== ENCOUNTER 2017-07-20 01:31 | Emergency (ER) | payer SELFPAY ==
[2017-07-20] VITALS (8 sets, daily range): BP systolic 103–120; BP diastolic 56–83; PULSE 78–124; RESP 16–28; TEMP 97.6–97.9; O2SAT 94–99
[~2017-07-20] VITALS: Ht 160 cm; Wt 52.0 kg
[2017-07-20] MEDS ORDERED: HALOPERIDOL LACTATE 5 MG/ML AMP IM ONE (02:15)
[2017-07-20] MEDS ORDERED: SODIUM CHLOR 0.9% 1000 ML INJ 1,000 ML IV ONE ×2 (02:15→03:45)
[2017-07-20] MEDS ORDERED: diphenhydrAMINE HCL 50 MG/ML VIAL IV PUSH ONE (02:15)
[2017-07-20] MEDS ORDERED: LORazepam 2 MG/ML VIAL IV PUSH ONE (02:15)
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
[2017-07-20 02:45] LABS: AUTOMATED NEUTROPHIL # 12.2 TH/MM3 (1.8-7.7); BASOPHIL # 0.1 TH/MM3 (0-0.2); BASOPHIL % 0.4 % (0.0-2.0); EOSINOPHIL % 0.2 % (0.0-4.0); HEMATOCRIT 27.4 % (35.0-46.0); HEMOGLOBIN 9.8 GM/DL (11.6-15.3); LYMPH % 13.6 % (9.0-44.0); LYMPHOCYTE # 2.2 TH/MM3 (1.0-4.8); MEAN CELL VOLUME 94.3 FL (80.0-100.0); MEAN CORPUSCULAR HEMOGLOBIN 33.8 PG (27.0-34.0); MEAN CORPUSCULAR HGB CONC 35.8 % (32.0-36.0); MEAN PLATELET VOLUME 8.4 FL (7.0-11.0); MONO % 9.5 % (0.0-8.0); MONOCYTE # 1.5 TH/MM3 (0-0.9); NEUT % 76.3 % (16.0-70.0); PLATELET COUNT 289 TH/MM3 (150-450); WHITE BLOOD COUNT 15.9 TH/MM3 (4.0-11.0)
[2017-07-20 02:48] LABS: INTERNATIONAL NORMALIZED RATIO 1.1 RATIO; PROTHROMBIN TIME - PATIENT 11.4 SEC (9.8-11.6)
[2017-07-20 02:56] LABS: ALBUMIN 3.8 GM/DL (3.4-5.0); ALT (GPT) 25 U/L (10-53); AST (GOT) 37 U/L (15-37); BICARBONATE 24.2 MEQ/L (21.0-32.0); BLOOD UREA NITROGEN 19 MG/DL (7-18); CALCIUM 8.6 MG/DL (8.5-10.1); CHLORIDE 106 MEQ/L (98-107); CREATININE 0.92 MG/DL (0.50-1.00); GLOMERULAR FILTRATION RATE 68 ML/MIN (>89); GLUCOSE,RANDOM 84 MG/DL (74-106); MAGNESIUM 1.8 MG/DL (1.5-2.5); SODIUM (NA) 140 MEQ/L (136-145)
[2017-07-20 02:59] LABS: ALKALINE PHOSPHATASE 63 U/L (45-117); TOTAL BILIRUBIN ADULT 1.1 MG/DL (0.2-1.0); TOTAL PROTEIN 7.3 GM/DL (6.4-8.2)
[2017-07-20 03:00] LABS: ACETAMINOPHEN LESS THAN 2.0 MCG/ML (10.0-30.0)
--- NOTE | 2017-07-20 03:38 | RADRPT ---
EXAM DATE/TIME: 07/20/2017 02:52 [place] COMPARISON: No previous studies available for comparison. INDICATIONS : Cough. MEDICAL HISTORY : None. SURGICAL HISTORY : None. ENCOUNTER: Initial ACUITY: 1 day PAIN SCORE: 0/10 LOCATION: Bilateral chest FINDINGS: Portable AP view of the chest demonstrates a normal-sized cardiac silhouette. No effusion, consolidat ion, or pneumothorax is visualized. The bones and soft tissues demonstrate no acute abnormality. The lungs are underinflated. CONCLUSION: No acute cardiopulmonary abnormality is identified. Darius Carbone MD on July 20, 2017 at 3:36 Board Certified Radiologist. This report was verified electronically.
[2017-07-20] MEDS ORDERED: POTASSIUM CHLORIDE 25 MEQ EFFERVESCENT TAB PO ONE (04:15)
[2017-07-20 04:21] LABS: BACTERIA, URINE RARE /hpf; BILIRUBIN, URINE NEG (NEG); BLOOD, URINE MOD (NEG); GLUCOSE,URINE NEG (NEG); HYALINE CAST, URINE 16 /lpf (RARE); KETONE, URINE 40 mg/dL (NEG); MUCUS URINE MANY /lpf (OCC); NITRITE,URINE NEG (NEG); PH, URINE 5.5 (5.0-8.5); SQUAMOUS EPITHELIAL CELL URINE 2 /hpf (0-5); URINE COLOR YELLOW (YELLW/STRAW); URINE LEUKOCYTE ESTERASE TRACE (NEG)
== END 2017-07-20 13:10 | disposition home or self-care (01) ==
LOC: NEPE 01:31
DX: R41.0 Disorientation, unspecified (principal); F19.10 Other psychoactive substance abuse, uncomplicated; F17.200 Nicotine dependence, unspecified, uncomplicated; F32.9 Major depressive disorder, single episode, unspecified; R00.0 Tachycardia, unspecified; R52 Pain, unspecified; Z79.899 Other long term (current) drug therapy
CPT/HCPCS: 71045; 80053; 80307; 81001; 82550; 82552; 83735; 84703; 85025; 85610; 85730; 96361; 96372; 96374; 96375; 99284; J1200; J1630; J2060; J7030

== ENCOUNTER 2017-09-05 18:25 | Emergency (ER) | payer SELFPAY ==
[~2017-09-05] VITALS: Ht 160 cm; Wt 50.0 kg
[2017-09-05 18:32] VITALS: BP 131/84; PULSE 86; RESP 16; TEMP 97.3; O2SAT 100
--- NOTE | 2017-09-05 20:56 | PD ---
HPI Chief Complaint: Medical Clearance Time Seen by Provider: 20:47 Travel History International Travel<30 days: No Contact w/Intl Traveler<30days: No Traveled to known affect area: No History of Present Illness HPI Patient is a 41-year-old female presenting to the emergency department for evaluation of anxiety. She reports a chronic history of anxiety, she is currently on Cymbalta and Vistaril as well as Subutex. She is followed at the [facility] but has not been back in several months because she lost her Medicaid. She denies any suicidal homicidal ideations. She states that she feels sometimes things are a "blur". 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 She denies any pain , chest pain, shortness of breath, abdominal pain, nausea, vomiting, headache. She reports she feels anxious at least once a day. Symptoms are chronic in nature, they are not alleviated by anything. PFSH Past Medical History Hx Anticoagulant Therapy: No Anxiety: Yes Depression: Yes Reproductive: Yes (ENDOMETRIOSIS) ?: Unknown Menopausal: No : 4 Para: 0 Miscarriage: 2 : 2 Past Surgical History Surgical History: No Previous Surgery Other Surgery: Yes Social History Alcohol Use: Yes (PT STATES OCCASIONALLY) Tobacco Use: Yes (1/2 PPD) Substance Use: Yes (hx methamphetamine use, opiate) Allergies-Medications (Allergen,Severity, Reaction): Coded Allergies: *MDRO Multi-Drug Resistant Organism (Verified Adverse Reaction, Unknown, ) ESBL+E.Coli (urine)-11/14/15 Reported Meds & Prescriptions Reported Meds & Active Scripts Active Lexapro (Escitalopram Oxalate) 10 Mg Tab 10 Mg PO DAILY Review of Systems Except as stated in HPI: all other systems reviewed are Neg Psychiatric: Positive: Anxiety Physical Exam Narrative GENERAL: Thin, well-developed, well-nourished, alert female. Presenting in no acute distress. SKIN: Warm and dry. HEAD: Atraumatic. Normocephalic. EYES: Pupils equal and round. No scleral icterus. No injection or drainage. ENT: No nasal bleeding or discharge. Mucous membranes pink and moist. NECK: Trachea midline. No JVD. CARDIOVASCULAR: Regular rate and rhythm. RESPIRATORY: No accessory muscle use. Clear to auscultation. Breath sounds equal bilaterally. GASTROINTESTINAL: Abdomen soft, non-tender, nondistended. Hepatic and splenic margins not palpable. MUSCULOSKELETAL: Extremities without clubbing, cyanosis, or edema. No obvious deformities. NEUROLOGICAL: Awake and alert. No obvious cranial nerve deficits. Motor grossly within normal limits. Five out of 5 muscle strength in the arms and legs. Normal speech. PSYCHIATRIC: Appropriate mood and affect; insight and judgment normal. Data Data Last Documented VS Vital Signs Date Time Temp Pulse Resp B/P (MAP) Pulse Ox O2 Delivery O2 Flow Rate FiO2 09/05/17 18:32 97.3 86 16 131/84 (100) 100 Orders Orders Alprazolam (Xanax) (09/05/17 21:00) [facility] Medical Decision Making Medical Screen Exam Complete: Yes Emergency Medical Condition: Yes Interpretation(s) Vital Signs Date Time Temp Pulse Resp B/P (MAP) Pulse Ox O2 Delivery O2 Flow Rate FiO2 09/05/17 18:32 97.3 86 16 131/84 (100) 100 Differential Diagnosis Anxiety versus depression versus mood disorder versus other Narrative Course Patient is well-appearing 41-year-old female presenting for evaluation of anxiety. Anxiety is chronic in nature, she is currently on per her report Cymbalta and Vistaril. She is a patient at the [facility] but has not returned due to losing her Medicaid. Patient was advised that she does not need benefits in order to be seen at the [facility]. Patient is not suicidal or homicidal. Her vital signs are stable. Patient is advised to follow-up at the [facility] or [facility]. Patient denies any illicit drug use however upon review of medical records patient had a positive urine drug screen in July 2017. Patient is requesting to go home because now she is tired. Patient was encouraged to return for any new or worsening symptoms. Patient stable for discharge. Patient is not driving, she was given a low dose of Xanax orally 1 dose. Diagnosis Primary Impression: Anxiety Referrals: [facility] 1 day [facility] Patient Instructions: Anxiety (ED), General Instructions Additional Instructions: Follow-up at [facility] Follow-up with [facility] Return to emergency department for any new or worsening symptoms Med/Other Pt SpecificInfo: No Change to Meds Disposition: 01 DISCHARGE HOME Condition: Stable Emilie Landers [employer]STRUCTIONAL MATERIAL DIRECT[employer] Sep 05, 2017 20:56
[2017-09-05] MEDS ORDERED: ALPRAZolam 0.25 MG TAB PO ONE (21:00)
== END 2017-09-05 21:10 | disposition home or self-care (01) ==
LOC: NEPD 18:25
DX: F41.9 Anxiety disorder, unspecified (principal)
CPT/HCPCS: 99283